=== PATIENT | male | born 1975 | race Caucasian/White ===

== ENCOUNTER 2018-05-04 14:45 | Emergency (ER) | payer BC ==
[2018-05-04 15:06] VITALS: PULSE 64; RESP 18; O2SAT 100
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
[2018-05-04 16:47] VITALS: BP 124/74; TEMP 98.6
== END 2018-05-04 16:49 | disposition home or self-care (01) ==
LOC: ED 14:45
DX: R51 Headache (principal); S93.401A Sprain of unspecified ligament of right ankle, initial encounter; Y04.0XXA Assault by unarmed brawl or fight, initial encounter